=== PATIENT | male | born 1970 | race Caucasian/White ===

== ENCOUNTER 2017-12-13 19:02 | Emergency (ER) | payer OTHER, MEDICAID | END 2017-12-13 22:08 | disposition home or self-care (01) | LOC: FTE 19:02 | DX: S20.211A Contusion of right front wall of thorax, initial encounter (principal); F17.210 Nicotine dependence, cigarettes, uncomplicated; W11.XXXA Fall on and from ladder, initial encounter; Y92.9 Unspecified place or not applicable | CPT/HCPCS: 71100; 99283-25 ==